=== PATIENT | male | born 1970 | race Caucasian/White ===

== ENCOUNTER → 2020-02-27 | Outpatient (CLI) | payer BC | LOC: MC.RAD 08:53 | DX: D17.21 Benign lipomatous neoplasm of skin and subcutaneous tissue of right arm (principal) ==

== ENCOUNTER 2022-02-18 08:04 | Day surgery (SDC) | payer BC ==
[~2022-02-18] VITALS: Ht 177.8 cm; Wt 85.1 kg
[2022-02-18] MEDS ORDERED: MULTI VITAMINS1 TAB PO (08:30)
[2022-02-18] MEDS ORDERED: EPA FISH OIL1 SGL PO (08:30)
[2022-02-18 10:00] VITALS: BP 107/75; PULSE 55
--- NOTE | 2022-02-18 10:00 | NUR ---
Pt returns to [facility] and ambulates to recliner easily. Denies pain or nausea and just wants to go home. Pt encourged to drink something and accepts some coffee. VSS dynamap in place. Dr. Hutchins to bedside and talks with pt.
--- NOTE | 2022-02-18 10:18 | NUR ---
Pt asking to go home. Discharge instructions provided and IV discontinued. Pt gets dressed and IV discontinued. Pt taken out via wheelchair by TANIA Nazario and left in care of pt's .
[2022-02-18 15:25] VITALS: BP 116/80; PULSE 64; TEMP 97.6
== END 2022-02-18 10:18 | disposition home or self-care (01) ==
LOC: SDCO 08:04
DX: Z12.11 Encounter for screening for malignant neoplasm of colon (principal); K63.5 Polyp of colon; K62.1 Rectal polyp; K57.30 Diverticulosis of large intestine without perforation or abscess without bleeding
CPT/HCPCS: J2704; J7120